=== PATIENT | male | born 1945 | race Caucasian/White ===

== ENCOUNTER 2016-12-25 11:22 | Inpatient (IN) | payer MEDICARE, OTHER ==
[~2016-12-25] VITALS: Ht 180.3 cm; Wt 99.7 kg
--- NOTE | ~2016-12-25 | OR ---
PATIENT'S NAME: MAX CALLEJAS [facility] AGE: 71 Y [address] ROOM: [place] [address] LOCATION: [facility] ADMIT DATE: 12/25/2016 OR/Procedure Report DISCHARGE DATE: 12/27/2016 FAMILY PHYSICIAN: PHYSICIAN, NO ATTENDING PHYSICIAN: Tamiko Yeager SURGEON: Emiliano Loja DO SUPERVISOR TRAVEL INFORMATION CENTER: DATE OF PROCEDURE: 12/26/2016 PREOPERATIVE DIAGNOSES: 1. Third-degree atrioventricular block with syncope. 2. Transient ischemic attack. POSTOPERATIVE DIAGNOSES: 1. Third-degree atrioventricular block with syncope. 2. Transient ischemic attack. PROCEDURE: Insertion of dual-chamber permanent pacemaker via the left subclavian vein. BRIEF HISTORY: Mr. Callejas is a 71-year-old white male with the above-noted diagnosis. He has been brought to the operative suite today after informed consent was obtained for placement of his device. DESCRIPTION OF PROCEDURE: Anterior chest wall was sterilely prepped and draped in usual fashion. The left infraclavicular space was then infiltrated with 1% lidocaine and the patient was placed into a Trendelenburg position. The subclavian vein was accessed x2 and guidewires were placed under fluoroscopic guidance into the right atrium. An incision was created and pocket was formed. Electrocautery used for hemostasis. Guidewires were brought through the incision via sheath and dilator assembly and we placed our leads. We began with our right ventricular lead, it is a [employer] Ingevity lead, model 7742, serial number [id number]. The lead was placed in the right ventricular base, sensing R-waves of 4.6 with a measured threshold of 0.4 V at 0.4 msec, its impedance was 812 ohms. In a similar fashion, we placed our atrial lead, which is a [employer] Ingevity lead, model 7741, serial number is [id number]. This lead was placed into the right atrial appendage. Sensing P-waves of 2.3 mV with a voltage threshold was 0.8 V at 0.4 msec and a pacing impedance of 627 ohms. Each lead was now connected to the [employer] MRI generator, model number is L111, serial number is [id number]. Leads and generators were placed into the pocket. Appropriate sensing and pacing was noted. Incision was closed in a layered fashion with 2-0 and 4-0 Vicryl. Pressure dressing was applied. As noted above, this is an MRI Safe System. The patient was paced DDDR, lower rate limit of 60 and maximal tracking rate of 130. The patient tolerated the PATIENT'S NAME: MAX CALLEJAS [facility] AGE: 71 Y [address] ROOM: [place] [address] LOCATION: [facility] ADMIT DATE: 12/25/2016 OR/Procedure Report DISCHARGE DATE: 12/27/2016 FAMILY PHYSICIAN: ALESHA CONDE ATTENDING PHYSICIAN: Tamiko Yeager procedure well and was transferred to recovery area in stable condition. DO KAYY BAUER/balbir /[id number] d: 12/29/16 1859 t: 01/01/17 0729, OPERATIVE SUMMARY
--- NOTE | ~2016-12-25 | HP ---
PATIENT'S NAME: MAX CALLEJAS [facility] AGE: 71 Y [address] ROOM: [place] [address] LOCATION: [facility] ADMIT DATE: 12/25/2016 History & Physical DISCHARGE DATE: FAMILY PHYSICIAN: PHYSICIAN, NO ATTENDING PHYSICIAN: Shobha PAUL DATE OF SERVICE: CHIEF COMPLAINT: Left-sided weakness. HISTORY OF PRESENT ILLNESS: The patient is a 71-year-old gentleman with history of Crohn's disease, hyperlipidemia, and diabetes mellitus type 2, who presents here to our emergency department with acute left-sided weakness. The patient reports that around 11 o'clock a.m., he experienced left hand numbness with subsequent lightheadedness. The patient sat down in a chair for a while and could not pickup his cell phone with his left upper extremity. He had to use his right hand in order to pickling solution maker his phone from his left pocket. The patient reports that he tried to walk around and also felt his left lower extremity to be weak and dragging. The patient was brought here emergently for suspicious for stroke. The patient denies chest pain, shortness of breath, abdominal pain, nausea, vomiting, vision change, and syncope. In the emergency department, CT head was done, which showed no acute changes. Teleneurology was consulted. By the time the patient was in the emergency department, the patient's symptoms improved, and went back to normal. The patient received full dose of aspirin during visit. The patient reports that he has a history of low heart rate and denies history of hypertension. PAST MEDICAL HISTORY: 1. History of Crohn's disease. 2. Diabetes mellitus type 2. 3. Hyperlipidemia. PAST SURGICAL HISTORY: Colectomy secondary to Crohn's disease and hernia repair with mesh. FAMILY HISTORY: Suspicious for inflammatory bowel disease. He reports that his father of old age. SOCIAL HISTORY: He is a retired insurance office manager. He denies smoking and drinking. PATIENT'S NAME: MAX CALLEJAS [facility] AGE: 71 Y [address] ROOM: [place] [address] LOCATION: [facility] ADMIT DATE: 12/25/2016 History & Physical DISCHARGE DATE: FAMILY PHYSICIAN: PHYSICIAN, NO ATTENDING PHYSICIAN: Shobha PAUL MEDICATIONS: Currently being reconciled. REVIEW OF SYSTEMS: All systems have been reviewed and are negative except for what I mentioned in the HPI. PHYSICAL EXAMINATION: VITAL SIGNS: Afebrile, blood pressure 176/86, heart rate of 56, respiratory rate of 14, and saturating 95% on room air. GENERAL APPEARANCE: The patient is alert and awake, sitting on the bed, surrounded by his family. HEAD: Normocephalic, atraumatic. EYES: Extraocular muscles intact. No discharge. NOSE: No nasal discharge. EARS: No ear discharge. ORAL CAVITY: Moist oral cavity. CHEST: Clear to auscultation bilaterally. HEART: Bradycardic. No murmurs, rubs, or gallops heard. ABDOMEN: Soft, nontender, and nondistended. Bowel sounds are present. SKIN: Warm to touch. EXTREMITIES: No edema. MUSCULOSKELETAL: Range of motion intact. No obvious effusion noted. RETURNER: Alert and oriented x3. Motor and strength grossly intact. The patient was able to walk. No ataxia was noted. LABORATORY DATA: Troponin x1 negative. White blood cell count of 7.1, hemoglobin 14, platelets of 245. Creatinine of 1, BUN of 17, blood glucose 124, sodium of 140, and potassium 4.6. EKG shows first-degree AV block with heart rate in the 50s with OR length of close to 600 milliseconds. ASSESSMENT AND PLAN: 1. Transient ischemic attack. The patient is presenting with left-sided symptoms that improved on admission status post full dose aspirin. ABCD2 score is 6 points. Two day stroke risk is 8.1%. Thus we will admit the patient as an inpatient for serial neurological exam and stroke workup. Stroke workup will include echocardiogram, CTA of head and neck, and MRI of brain without contrast. We will keep the patient on telemonitor to analyze for arrhythmia. Continue 81 mg of aspirin. The patient is on simvastatin. The patient has intolerance to Lipitor. Therefore we will start the patient on Crestor 40 mg daily. We will allow permissive PATIENT'S NAME: MAX CALLEJAS [facility] AGE: 71 Y [address] ROOM: [place] [address] LOCATION: [facility] ADMIT DATE: 12/25/2016 History & Physical DISCHARGE DATE: FAMILY PHYSICIAN: PHYSICIAN, NO ATTENDING PHYSICIAN: Shobha PAUL hypertension for 24 hours until the MRI is negative. If MRI is positive, we will continue the permissive hypertension for 24 hours. To treat with hydralazine 10 mg IV if systolic blood pressure is greater than 220 and diastolic blood pressure is greater than 110. PT/OT to see the patient. 2. Diabetes mellitus type 2. We will hold metformin as the patient is going to get a CTA of head and neck. We will start the patient on sliding scale insulin with aspart with low-dose scale. 3. Crohn's disease, stable. Continue home medications. 4. Hyperlipidemia. We will change simvastatin to Crestor. Assessment and plan was discussed with the patient. Greater than 40 minutes was spent on patient care. All question was answered to patient's satisfaction. We will admit the patient. Code status on admission, full code. BEVERLY REARDON MD AD/modl /[id number] D: [id number] T: [id number] HISTORY & PHYSICAL
--- NOTE | ~2016-12-25 | CON ---
PATIENT'S NAME: MAX CALLEJAS [facility] AGE: 71 Y [address] ROOM: [place] [address] LOCATION: [facility] ADMIT DATE: 12/25/2016 Consultation DISCHARGE DATE: FAMILY PHYSICIAN: PHYSICIAN, NO ATTENDING PHYSICIAN: Shobha MORRISON A consult for Dr. Morrison, hospitalist. HISTORY OF PRESENT ILLNESS: This pleasant, 71-year-old gentleman is referred for rehab evaluation, admitted on 12/25 with sudden onset of left-sided weakness. He could not move his upper extremity, and later on, he noticed that he could not properly move his left lower extremity. No similar condition in the past. Denied any headache. No dizziness. No visual cut/neglect. Denied any chest pain. No shortness of breath. Denied any tachycardia. No abdominal pain. Denied any visual changes. No headaches. No syncope. No similar condition in the past. No trauma. PAST MEDICAL HISTORY: 1. Known to have history of diabetes type 2 and on treatment. 2. Dyslipidemia. 3. Crohn's disease. 4. He denied history of hypertension. PHYSICAL EXAMINATION: GENERAL: At the present time, he is alert, oriented, feels that he has done much better. VITAL SIGNS: Blood pressure 185/89, temperature 97.6, pulse 67, and respiration rate 18. He is 5 feet 11 inches and weighs 99.5 kg. NEUROLOGIC: He is able now to comprehend and express without difficulty. No visual cut and/or neglect. No facial droop. Cranial nerves 2 through 12 are within normal limits. Voice is clear and not wet. Tongue and soft palate are moving symmetrical. His muscle strength throughout is 4 to 4+. Deep tendon reflexes are present and equal throughout, 1+. Good bladder and bowel control. MEDICATIONS: He is on the following medications: 1. Aspirin. 2. Adrenaline. 3. Atropine sulfate. PATIENT'S NAME: MAX CALLEJAS [facility] AGE: 71 Y [address] ROOM: [place] [address] LOCATION: [facility] ADMIT DATE: 12/25/2016 Consultation DISCHARGE DATE: FAMILY PHYSICIAN: PHYSICIAN, NO ATTENDING PHYSICIAN: Shobha MORRISON 4. Metamucil. 5. NaCl 0.9%. 6. MiraLAX. 7. Multivitamin. 8. Insulin aspartate, mild scale. 9. Crestor. 10. Glucagon. 11. Glucose. 12. Dextrose. 13. Apresoline. 14. Tylenol. 15. Protonix. ASSESSMENT AND PLAN: This gentleman has made very well so far, and he has done good and progressed nicely. I feel that he needs to continue to work with his family physician and not to drive until he is re-evaluated. I will be following alongside with you while he is here. Thank you for this referral. I explained everything for him and his . They verbalized understanding and agreement. MD JORDI CHAN/modl /[id number] d: 12/26/16 1203 t: 12/27/16 0826, CONSULTATION REPORT
--- NOTE | ~2016-12-25 | HP ---
PATIENT'S NAME: MAX CALLEJAS [facility] AGE: 71 Y [address] ROOM: [place] [address] LOCATION: [facility] ADMIT DATE: 12/25/2016 History & Physical DISCHARGE DATE: FAMILY PHYSICIAN: PHYSICIAN, NO ATTENDING PHYSICIAN: Shobha PAUL DATE OF SERVICE: ADDENDUM: Bradycardia. The patient reports he has a history of bradycardia, and his blood pressure has been stable, and he has not had episode of any syncope in the past. EKG shows sinus roberta with first-degree AV block with WA interval close to 600 msec. We will keep the patient on telemonitor and follow the patient closely. Blood pressure is stable. The patient might benefit from pacemaker in the near future. To consult Cardiology if patient is symptomatic. MD MASTER HERNANDEZ/balbir /[id number] D: [id number] T: [id number] HISTORY & PHYSICAL
--- NOTE | ~2016-12-25 | CON ---
PATIENT'S NAME: MAX CALLEJAS [facility] AGE: 71 Y [address] ROOM: [place] [address] LOCATION: [facility] ADMIT DATE: 12/25/2016 Consultation DISCHARGE DATE: FAMILY PHYSICIAN: PHYSICIAN, NO ATTENDING PHYSICIAN: Shobha PAUL DATE OF CONSULTATION: 12/25/2016 TIME: 1135 hours. CHIEF COMPLAINT: Left-sided weakness. HISTORY OF PRESENT ILLNESS: We were called to the emergency room on a stroke alert for this 71-year-old male who presented with left-sided weakness. His and son are at bedside and help with the history. The incident started 30 minutes prior to arrival. He had some numbness and tingling in his left arm and weakness, and by the time he went to stand, he had difficulty standing. His son stated he had to pretty much carry him to the car. He also had some difficulties in talking. When we saw him in the ED, we examined him in cart 6. He had just completed his CAT scan. PAST MEDICAL HISTORY: Includes xys-[id number]-[id number] diabetes mellitus, Crohn disease, dyslipidemia, and bradycardia. PAST SURGICAL HISTORY: Includes a colectomy. During the colectomy, he was in the hospital for 19 days and developed DVT and also has a vena cava filter in. SOCIAL HISTORY: The patient denies any tobacco, alcohol, or illicit drug use. ALLERGIES: OXYCODONE. MEDICATIONS: Reviewed by me. They do not include any blood thinners. PRIMARY CARE DOCTOR: Dr. Aponte. REVIEW OF SYSTEMS: PATIENT'S NAME: MAX CALLEJAS [facility] AGE: 71 Y [address] ROOM: [place] [address] LOCATION: [facility] ADMIT DATE: 12/25/2016 Consultation DISCHARGE DATE: FAMILY PHYSICIAN: PHYSICIAN, NO ATTENDING PHYSICIAN: Shobha PAUL All systems were reviewed and are negative with the exception of those discussed in the HPI and Past Medical History. PHYSICAL EXAMINATION: VITAL SIGNS: Weight 101.5 kg. Blood pressure is 157/68, pulse is 68, respirations 18, and temperature 96.6. He is saturating 96% on room air. GENERAL: The patient is a 71-year-old well-groomed male who appears his stated age. He participates in the exam. HEENT: Normocephalic and atraumatic. Pupils are equal, round, and reactive to light. Extraocular motions are intact. NECK: Supple without nuchal rigidity. CARDIOVASCULAR: Regular rate and rhythm. LUNGS: Clear to auscultation bilaterally. No wheezes, rales, or rhonchi. ABDOMEN: Soft, nontender, and nondistended. SKIN: Warm and dry with no rashes or lesions noted. NEUROLOGICAL: Alert and oriented x4. NIH is 2 with slight pronator drift in the left arm and left leg. Gait was not examined. The patient is able to stand with good balance. Pupils equal and reactive to light and accommodation. Extraocular movements intact. LABORATORY AND DIAGNOSTIC DATA: CT is reported as negative for acute bleed or stroke. EKG was obtained and shows sinus bradycardia with a rate of 36. CBC is normal. CMP is normal. Coagulation panels are normal. IMPRESSION: Cerebrovascular accident. The patient still demonstrates some mild symptoms of possibly a right-sided cerebrovascular accident. He is also markedly bradycardic. We will admit him to the hospital for further followup from this incident. We will obtain MRI, echo, and lipid panel for stroke workup. We will involve PT, OT, and Speech, and Dr. Alvares to consult for rehabilitation. The patient is not a tPA candidate due to his low stroke scale. If the patient's condition would change, we would certainly want notified for reevaluation. The plan of care was discussed with Dr. Petty. Dr. Strong and Dr. Petty were involved in the plan of care. The situation was discussed with the patient, his , and their son. They asked appropriate questions. The plan will be to admit to NTU, which is a monitored floor. Therefore, we can monitor his bradycardia. The patient did require 35 minutes of critical care time including discussion with the patient and family about possible risks and benefits of thrombolytic therapy and risks and benefits of treatment. The patient did seem surprised that he was being admitted, as well his did. It was discussed why we had to look further into these episodes. Physican Attestation: Patient was seen and evaluated via telemedicine with aditya assistance of JUAN Arias. We discussed the impression and plan together and with patient/family as indicated above. PATIENT'S NAME: MAX CALLEJAS [facility] AGE: 71 Y [address] ROOM: [place] [address] LOCATION: [facility] ADMIT DATE: 12/25/2016 Consultation DISCHARGE DATE: FAMILY PHYSICIAN: PHYSICIAN, ALEHSA ATTENDING PHYSICIAN: Shobha PAUL ANA ARIAS MD PP/modl /[id number] d: 12/26/16 1427 t: 02/07/17 1315, CONSULTATION REPORT
--- NOTE | ~2016-12-25 | ECHO ---
Transthoracic Echocardiography Report (TTE) Demographics Patient Name MAX CALLEJAS Date of Study 12/26/2016 Patient Number [id number] Visit Number [id number] Date of 1945 Room Number G6324 Accession Number [id number] Gender Male Age 71 year(s) Referring Tamiko Yeager Project Geophysicist Billy Jackson RDCS, Physician RVT Physician Interpreting Shay Dumont Die Casting Machine Maintainer Physician MD Supervising Ordering Physician aTmiko Yeager MD/MLP Nurse Stress Measuring Machine Operator Conclusions Contractility Score Summary Normal Left Ventricular contractility was noted. Summary Normal LV/RV size and systolic function. The estimated left ventricular ejection fraction is 60%. The left atrium is moderately dilated. Informed consent was obtained, bubble study was done, there is no evidence for a PFO or ASD. The right atrium is moderately dilated. Mild tricuspid regurgitation by color Doppler. Procedure Type of Study TTE procedure:2D Echocardiogram, Echo with Contrast. Procedure Date Date: 12/26/2016 Start: 09:58 AM Study Location: Inpatient Portable Technical Quality: Adequate visualization Indications:TIA. Appropriate Use Criteria: 9 Patient Status: Routine Contrast Medium: Bubble Study. Rhythm: Atrial fibrillation HR: 65 bpm BP: 153/87 mmHg M-Mode/2D Measurements LV Diastolic Dimension: 4.32 cm LV Systolic Dimension: 2.49 cm LV Septum Diastolic: 0.89 cm LV PW Diastolic: 0.93 cm AO Root Dimension: 3.5 cm Cardiac Output: 3.08 l/min AV Cusp Separation: 1.9 cm RV Diastolic Dimension: 2.83 cm LA volume: 92 ml LVOT: 1.9 cm RV Base: 4.08 cm LVOT VTI: 16.7 cm RV Mid: 3.22 cm LV Stroke volume: 47.33 ml TAPSE: 2.52 cm TDI-S': 10.3 cm/s Doppler Measurements AV Peak Velocity: 1.2 m/s MV Peak E-Wave: 1.58 m/s AV Peak Gradient: 5.76 mmHg AV Mean Gradient: 3 mmHg MV P1/2t: 45 msec LVOT Peak Velocity: 0.73 m/s TR Velocity:2.89 m/s PV Peak Velocity: 0.82 m/s TR Gradient:33.41 mmHg PV Peak Gradient: 2.69 mmHg Estimated RAP:5 mmHg Estimated PASP: 38.41 mmHg Estimated RVSP: 38 mmHg E' Septal Velocity: 0.14 m/s E' Lateral Velocity: 0.18 m/s Findings Left Ventricle The left ventricle is normal in size . Diastolic function indeterminate due to patient's arrhythmia. Right Ventricle Normal right ventricle structure and function. Left Atrium The left atrium is moderately dilated. Informed consent was obtained, bubble study was done, there is no evidence for a PFO or ASD. Right Atrium The right atrium is moderately dilated. IVC measures 1.66 cm with inspiratory collapse. Mitral Valve Mild mitral regurgitation by color Doppler. Aortic Valve There is mild aortic regurgitation by color Doppler. The aortic valve is mildly sclerotic. Tricuspid Valve Mild tricuspid regurgitation by color Doppler. The pulmonary pressure (RVSP) is 38.41 mmHg. Pulmonic Valve Normal pulmonic valve structure and function. Pericardial Effusion No evidence of pericardial effusion. Miscellaneous The aortic root maximum diameter measures 3.5 cm. Pleural Effusion No evidence of pleural effusion. Contractility Score LV regional wall motion:(0-Non visualized 1-Normal 2-Hypokinesis 3-Akinesis 4-Dyskinesis 5-Aneurysm) Signature dtt: KRISTYN MONTERO dtd: 12/26/16 0958 Physician Self Edit
--- NOTE | ~2016-12-25 | DS ---
PATIENT'S NAME: MAX CALLEJAS [facility] AGE: 71 Y [address] [place] [facility] [place] [address] LOCATION: GPCU ADMIT DATE: 12/25/2016 Discharge Summary DISCHARGE DATE: 12/27/2016 FAMILY PHYSICIAN: PHYSICIAN, NO ATTENDING PHYSICIAN: Shobha MORRISON CONSULTING PHYSICIANS: 1. Dr. Basilio. 2. Dr. Loja. 3. Tele-neurology. DISCHARGE DIAGNOSES: 1. Acute to subacute multifocal infarcts. 2. Third-degree AV block, status post pacemaker. 3. Diabetes mellitus type 2. 4. Dyslipidemia. 5. Crohn disease. PROCEDURES PERFORMED: Placement of a pacemaker, [employer], on 12/26/[address] Loja. HOSPITAL COURSE: Please refer to admitting history and physical as dictated by Dr. Morrison. Briefly, the patient was admitted to [facility] [place] with left-sided weakness. He was seen and evaluated by tele-neurologist, Dr. Petty. He was not a candidate for tPA because of his rapid and near-complete improvement of his left-sided weakness. He was noted to have bradycardia. It was recommended that he be admitted to the hospital. He was monitored on telemetry throughout his stay. He was started on a baby aspirin. Accu-Cheks were monitored a.c. and h.s. with sliding scale as needed. At 0200 hours on 12/26/2016, the patient had an episode of bradycardia, heart rates 30s to 40s, blood pressure of 160/90. EKG did show a third-degree AV block. Cardiology was consulted. It was recommended that the patient proceed with a dual- chamber pacemaker to be placed by Dr. Loja. This procedure took place on 12/26/2016. The patient tolerated the procedure well. His left-sided weakness had essentially resolved. PT and OT did see the patient as well as Dr. Alvares for rehab evaluation. He was not a candidate for rehab. He was started on Lopressor 25 mg twice a day. Cardiology was also asked to perform a SABAS as the patient did have multifocal subacute and acute infarcts. SABAS was performed on 12/27. It did not show any evidence of left atrial appendage thrombus. It did show mild atherosclerotic plaque. He was feeling well after his SABAS. His vital signs were stable. Heart rate 60s to 90s. The patient's vital signs were stable. He was ambulatory. It was felt as though he was stable to be discharged to home. Follow up with his primary care provider in 3-5 days. PATIENT'S NAME: MAX CALLEJAS [facility] AGE: 71 Y [address] ROOM: [place] [address] LOCATION: GPCU ADMIT DATE: 12/25/2016 Discharge Summary DISCHARGE DATE: 12/27/2016 FAMILY PHYSICIAN: ALESHA CONDE ATTENDING PHYSICIAN: Shobha MORRISON LABORATORY DATA: Sodium 141, potassium 4.5, chloride 107, BUN 15, creatinine 1.0. GFR remained greater than 60. Total cholesterol 166, triglycerides 125, HDL 57, LDL 84. Hemoglobin A1c 6.7. TSH 1.940. WBC 6.3, hemoglobin 13.9, hematocrit 42.0, platelets 189. INR 0.94. RADIOLOGY REPORT: CTA of the head and neck was essentially normal. Mild atherosclerotic changes. MRI of the brain showed multiple small foci of acute and subacute ischemic infarct in the right MCA territory involving the frontal parietal cortex and posterior frontal centrum semiovale. Chest x-ray was normal. Post-pacemaker insertion chest x-ray showed left-sided pacemaker in good position. Heart, lungs, and mediastinum were stable. DISCHARGE MEDICATIONS: 1. Aspirin 81 mg p.o. daily. 2. Lopressor 25 mg p.o. twice a day. 3. Multivitamin 1 tablet p.o. daily. 4. MiraLAX 17 g p.o. daily. 5. Metamucil 6 tabs p.o. twice daily. 6. Crestor 40 mg p.o. daily. 7. Mesalamine 2.4 g p.o. daily. 8. Metformin 500 mg p.o. twice daily. DISCHARGE INSTRUCTIONS: The patient will be discharged to home. Diet: Cardiac. Activity: Post-pacemaker restrictions. Followup appointment: With Dr. Sammi Aponte in 3-5 days. No pulling, pushing, or lifting greater than 10 pounds with left upper extremity for two weeks. May shower on 12/28/2016. November DC sling on 12/28/2016. Thank you for allowing us to participate in the care of this patient as he has been hospitalized at [facility]. PATIENT'S NAME: MAX CALLEAJS [facility] AGE: 71 Y [address] ROOM: [place] [address] LOCATION: GPCU ADMIT DATE: 12/25/2016 Discharge Summary DISCHARGE DATE: 12/27/2016 FAMILY PHYSICIAN: PHYSICIAN, ALESHA ATTENDING PHYSICIAN: Shohba MORRISON APRN FOR RONNIE RUCKER MD KRR/modl /[id number] CC: Sammi Aponte MD d: 12/28/16 0353 t: 01/05/17 1834, DISCHARGE SUMMARY
--- NOTE | ~2016-12-25 | CON ---
PATIENT'S NAME: MAX CALLEJAS [facility] AGE: 71 Y [address] ROOM: [place] [address] LOCATION: [facility] ADMIT DATE: 12/25/2016 Consultation DISCHARGE DATE: FAMILY PHYSICIAN: PHYSICIAN, NO ATTENDING PHYSICIAN: Shobha PAUL DATE OF CONSULTATION: 12/26/2016 CARDIOLOGY CONSULTATION REASON FOR CARDIOLOGY CONSULTATION: Bradycardia. HISTORY OF PRESENT ILLNESS: This is a 71-year-old male, who presents to [facility] with left- sided weakness. He came to the emergency department because he had left hand numbness and lightheadedness, and was unable to use his left arm or his left leg at home. His symptoms did resolve after being in the emergency department for a short time. An MRI of his head showed a small acute or subacute ischemic infarct in the right MCA territory. He has had return of equal strength to upper and lower extremities. This consult requested due to the patient overnight developing a third-degree AV block on his telemetry with heart rates in the 30s. At this time, his heart rate is 60 beats per minute with a sinus rhythm with a first-degree AV block. He denies any chest pain, shortness of breath, palpitations, nausea, vomiting, presyncope, or syncope. He does admit to having a few dizzy episodes a few weeks ago when standing up quickly. Overall, he has been in a normal level of health and his health history includes chronic Crohn's disease, diabetes mellitus type 2, and hyperlipidemia. At the time of this consult, he is resting comfortably in bed in no acute distress. PAST MEDICAL HISTORY: As listed in the HPI. PAST SURGICAL HISTORY: 1. Hernia repair. 2. Partial colectomy due to Crohn disease. FAMILY HISTORY: Noted history of inflammatory bowel disease. SOCIAL HISTORY: No history of tobacco or alcohol abuse. Also no history of illicit drug use. CURRENT MEDICATIONS: PATIENT'S NAME: MAX CALLEJAS [facility] AGE: 71 Y [address] ROOM: [place] [address] LOCATION: [facility] ADMIT DATE: 12/25/2016 Consultation DISCHARGE DATE: FAMILY PHYSICIAN: PHYSICIAN, NO ATTENDING PHYSICIAN: Shobha PAUL 1. Aspirin 81 mg p.o. daily. 2. Crestor 40 mg p.o. daily. 3. Metamucil 6 capsules p.o. twice daily. 4. MiraLAX 17 g p.o. daily. 5. Lialda 1.2 g p.o. daily. 6. Protonix 40 mg p.o. daily. 7. Multivitamin 1 tablet p.o. daily. 8. NovoLog subcutaneous on a mild sliding scale per a.c. and at bedtime Accu- Cheks. MEDICATION ALLERGIES: Codeine causing confusion. REVIEW OF SYSTEMS: Pertinent positive review of systems as stated in the HPI. All other review of systems evaluated and negative. PHYSICAL EXAMINATION: VITAL SIGNS: Temperature 97.6, pulse 67, respirations 18, blood pressure 185/89, and O2 saturation 96% on room air. The patient weighs 99.5 kg. SKIN: [place], warm, and dry. EYES: Sclerae clear. No xanthelasmas. ENT: Oral mucosa is pink and moist. No jugular venous distention or carotid bruits. CHEST: Respirations are even and unlabored. LUNGS: Clear to auscultation. HEART: Regular rate and rhythm. Normal S1 and S2. No murmurs, rubs, or gallops. ABDOMEN: Soft, nontender. MUSCULOSKELETAL: Gait is normal. EXTREMITIES: Peripheral pulses palpable. No clubbing, cyanosis, or edema. PSYCHIATRIC: Alert and oriented. Mood and affect are appropriate. IMPRESSION AND PLAN: Per Dr. Julia Day: 1. Third-degree atrioventricular block. 2. Acute/subacute right middle cerebral artery ischemic infarct with small foci. 3. Chronic Crohn disease with no recent exacerbations or need for antibiotics. Again this is a 71-year-old male, admitted with transient ischemic attack and received full-dose aspirin. He is currently undergoing a 2D echocardiogram which shows normal left ventricular ejection fraction and his bubble study is currently pending. He does have complete heart block, as well as a noted tracing of 2:1 atrioventricular block. He is on no offensive medications, and PATIENT'S NAME: MAX CALLEJAS [facility] AGE: 71 Y [address] ROOM: [place] [address] LOCATION: [facility] ADMIT DATE: 12/25/2016 Consultation DISCHARGE DATE: FAMILY PHYSICIAN: PHYSICIAN, NO ATTENDING PHYSICIAN: BEVERLY,Dagmawe will need a dual-chamber permanent pacemaker. We will defer to Neurology regarding the need for a transesophageal echocardiogram as well as anti- platelet therapy. His medications will be optimized after the permanent pacemaker implantation. We will continue to monitor, evaluate, and treat as appropriate. Thank you for this consult. Thank you for allowing [facility] to interact in the care of this patient. RIGOBERTO CHANDLER APRN FOR MD KIM SALTER/balbir /[id number] d: 12/26/16 1541 t: 01/01/17 1629, CONSULTATION REPORT
--- NOTE | ~2016-12-25 | ECHO ---
Transesophageal Echocardiography Report (SABAS) Demographics Patient Name MAX CALLEJAS Date of Study 12/27/2016 Patient Number [id number] Visit Number [id number] Date of 1945 Room Number G6324 Gender Male Number Age 71 year(s) Referring Shay Dumont Piano Stringer Rosalina Toure RVT, Physician MD JALEN Yeager Physician Interpreting Chetna Soriano Machine Shop Worker Physician Supervising Ordering Shay Dumont MD/GILDARDO Physician MD Nurse Stress Director [employer] Conclusions Summary Transesophageal echocardiogram was done under general anesthesia without difficult probe placement . The estimated left ventricular ejection fraction is 60%. The left ventricle is normal in size . There is no LA or LA appendage thrombus or spontaneous contrast. Negative bubble study. Mild mitral regurgitation by color Doppler. The aortic valve is mild to moderately sclerotic. There is mild aortic regurgitation by color Doppler. Mild tricuspid regurgitation by color Doppler. Mild thoracic aorta plaque. Procedure Type of Study SABAS procedure Procedure Date Date: 12/27/2016 Start: 10:19 AM Study Location: Inpatient Portable Technical Quality: Adequate visualization Indications:CVA. Appropriate Use Criteria: 8 Patient Status: Routine Rhythm: Paced HR: 64 bpm BP: 180/85 mmHg SABAS Performed By: the attending and the vp ad products and planning Findings Left Ventricle The left ventricle is normal in size . Left Atrium There is no LA or LA appendage thrombus or spontaneous contrast. Right Atrium Negative bubble study. Mitral Valve Mild mitral regurgitation by color Doppler. Aortic Valve The aortic valve is mild to moderately sclerotic. There is mild aortic regurgitation by color Doppler. Tricuspid Valve Mild tricuspid regurgitation by color Doppler. Miscellaneous Mild thoracic aorta plaque. Signature dtt: REG MILLAN dtd: 12/27/16 1019 Physician Self Edit
--- NOTE | ~2016-12-25 | ER ---
PATIENT'S NAME: MAX CALLEJAS [facility] AGE: 71 Y [address] ROOM: [place] [address] LOCATION: [facility] ADMIT DATE: 12/25/2016 ER/Outpatient Report DISCHARGE DATE: FAMILY PHYSICIAN: PHYSICIAN, NO ATTENDING PHYSICIAN: Shobha MORRISON Time of arrival: 1122 hours. Time of evaluation: 1124 hours. CHIEF COMPLAINT: Left-sided weakness. HISTORY OF PRESENT ILLNESS: The patient is a 71-year-old male who presents to the emergency department today with a chief complaint of left-sided weakness. He is accompanied by his and son. They reported it started 30 minutes prior to arrival. Denies any pain. He reports feeling a sense of numbness over the left side of his arm and pain in left leg. He had weakness then, that did develop in the left arm, left leg, he was having difficulty standing, difficulty in talking. He was unable to move his left arm. By the time he presented here, he had some very slight improvement. Denies any fevers or chills. No nausea or vomiting. No diarrhea or constipation. No chest pain. No shortness of breath. PAST MEDICAL HISTORY: Dhc-vbgwjlz-zotwezsle diabetes mellitus, Crohn's disease, dyslipidemia, and slow heart rate. PAST SURGICAL HISTORY: Colectomy. SOCIAL HISTORY: The patient denies any tobacco, alcohol, or illicit drug use. ALLERGIES: OXYCODONE. MEDICATIONS: Please see list. PRIMARY CARE DOCTOR: Dr. Aponte. REVIEW OF SYSTEMS: All systems are reviewed by myself and are negative with the exception of those discussed in HPI and past medical history. PATIENT'S NAME: MAX CALLEJAS [facility] AGE: 71 Y [address] ROOM: [address] [address] LOCATION: [facility] ADMIT DATE: 12/25/2016 ER/Outpatient Report DISCHARGE DATE: FAMILY PHYSICIAN: PHYSICIAN, NO ATTENDING PHYSICIAN: Shobha MORRISON PHYSICAL EXAMINATION: VITAL SIGNS: Weight 101.5 kg, blood pressure initially 213/88, pulse 74, respiratory rate 18, temperature 96.6, oxygen saturation 95% on room air. GENERAL: The patient is a 71-year-old male, who appears stated age. He is alert and oriented to person, place, time, and president. HEENT: Normocephalic, atraumatic. Pupils are equal, round, and reactive to light. Extraocular motions are intact. Nares are patent bilaterally. TMs are clear. Oropharynx is clear. NECK: Supple. There is no nuchal rigidity. CARDIOVASCULAR: Regular rate and rhythm. LUNGS: Clear to auscultation bilaterally. No wheezes, rales, or rhonchi. ABDOMEN: Soft, nontender, and nondistended. No rebound, rigidity, or guarding. MUSCULOSKELETAL: The patient moves all 4 extremities. SKIN: Warm and dry. No rashes or lesions noted. LABORATORY DATA AND X-RAYS: EKG is obtained, is interpreted by myself, does show a marked sinus bradycardia with a rate of 36, left axis deviation. Significantly prolonged NV interval. QTc is normal. No ST elevation, ST depression, T-wave inversions. CBC is normal. CMP is normal. Coags are normal. CT scan of the brain is obtained. I have discussed results with the radiologist. It shows no acute process. Troponin is less than 0.04. IMPRESSION: 1. Transient ischemic attack versus cerebrovascular accident. 2. Marked sinus bradycardia. 3. Critical care time 32 minutes. 4. Initial visit. EMERGENCY DEPARTMENT COURSE: The patient was brought back to the examination room. Seen and evaluated immediately upon arrival by myself. Stroke alert is initiated at that time. The patient did rapidly undergo a CT imaging of the brain. After return back, the patient is re-examined by myself. The patient's symptoms have significantly improved. He is now able to move his left arm and left leg. His initial NIH stroke scale was a 4, he is now at 0. He has been seen and evaluated by the tele neurologist Dr. Petty. I have discussed the case with Dr. Petty. We do agree that the patient is not a candidate for tPA at this time due to the rapid and near complete improvement of the patient's symptoms. The patient is noted to have episodes of bradycardia. He does have significant NV delay noticed on EKG. On the youth nutritional monitor, the patient does have episodes of pauses as well as episodes of junctional rhythm. The patient denies any chest pain or shortness of breath. I have discussed results of the PATIENT'S NAME: MAX CALLEJAS [facility] AGE: 71 Y [address] ROOM: [address] [address] LOCATION: [facility] ADMIT DATE: 12/25/2016 ER/Outpatient Report DISCHARGE DATE: FAMILY PHYSICIAN: , ALESHA ATTENDING PHYSICIAN: Shobha MORRISON laboratory analysis, EKG, CT scan with the patient and his family. I have contacted Paola who is housekeeper/laundry assistant at 12:29 p.m. I have contacted Dr. Morrison with the Hospitalist Service. He has seen and evaluated the patient down here in the emergency department. He does agree to accept the patient for further evaluation, treatment, and management. The patient did require 32 minutes of critical care time. This did include talking with family, talking with consultants, ordering tests, reviewing tests, as well as close monitoring the patient with significant neurological changes that is rapidly revolving. This did require significant focus and attention with multiple reevaluations of the patient's neurological status. The patient was given 324 mg of aspirin. The patient's questions are answered. Family's questions are answered. They are without further questions. DISPOSITION: The patient is admitted under the care of the Hospitalist Service in stable condition. DO QUOC ROMO/balbir /[id number] d: 12/25/16 1650 t: 12/27/16 0838, OUTPATIENT REPORT
[2016-12-25 12:06] LABS: INR - (THERAPEUTIC) 0.94 (0.92-1.07); PROTIME 9.9 SECONDS (9.8-11.4); PTT 28 SECONDS (25-32)
[2016-12-25 12:13] LABS: ALBUMIN 3.5 gm/dL (3.5-5.0); ANION GAP 13.6 (10.0-19.0); BLOOD UREA NITROGEN 17 mg/dL (6-24); CALCIUM 8.9 mg/dL (8.5-10.5); CHLORIDE 107 mMol/L (96-110); CO2 24 mMol/L (22-32); ESTIMATED GFR (MDRD EQUATION) > 60; PHOSPHORUS 2.7 mg/dL (2.5-4.9); POTASSIUM 4.6 mMol/L (3.7-5.1); SODIUM 140 mMol/L (135-145)
[2016-12-25 12:15] LABS: BASOPHIL % 0.4 %; EOSINOPHIL # 0.2 K/uL (0.0-0.5); EOSINOPHIL % 2.8 %; HEMATOCRIT 44.2 % (37.0-53.0); HEMOGLOBIN 14.8 g/dL (11.0-16.0); IMMATURE GRANULOCYTE % 0.4 %; LYMPHOCYTE # 2.3 K/uL (0.8-4.0); LYMPHOCYTE % 32.2 %; MCH 29.5 pg (27.0-34.0); MCHC 33.5 gm/dL (32.0-36.5); MONOCYTE # 0.6 K/uL (0.0-1.0); MONOCYTE % 7.8 %; NEUTROPHIL % 56.4 %; NRBC % 0 /100WBC (0-0.00); PLATELET COUNT 245 K/uL (150-450); RBC 5.02 M/uL (3.50-5.50); WBC 7.1 K/uL (4.0-11.0)
--- NOTE | 2016-12-25 14:00 | NUR ---
Significant Event: This am felt faint/light headedness and noted left upper extremity weakness. Concern noted and he stated "think I should go to the hospital". Transported to [facility] per private vehicle driven by . Came to emergency room and evaluated for stroke. admitted to NTU at 1355 for TIA. Tele neurology saw in emergency room. Dr. Morrison admitted. Does have chronic bradycardia with heart rate as low as 36 in emergency room. Bradycardia is unsyptomatic. Patient lives in [place] with his . Is visiting grand daughter here in [place] today.
[2016-12-25] MEDS ORDERED: ZOCOR20 MG PO (16:26)
[2016-12-25] MEDS ORDERED: LIALDA1.2 GM PO (16:27)
[2016-12-25] MEDS ORDERED: MIRALAX17 GM PO (16:30)
[2016-12-25] MEDS ORDERED: GLUCOPHAGE500 MG PO (16:30)
[2016-12-25] MEDS ORDERED: METAMUCIL CAPSU1 CAP PO (16:32)
[2016-12-25] MEDS ORDERED: THERA-VITE W/ B1 TAB PO (16:32)
--- NOTE | 2016-12-25 19:28 | NUR ---
Significant Event: 71 Y/O MALE. FULL CODE ADMITTED BY HOSPITALIST FOR TIA. A/O X 3. NIHSS=0. UP AD ENMANUEL. IV TO RIGHT WRIST SALINE LOCKED. PASSED SWALLOWING EVALUTION. ADA DIET. ACCUCHECKS AC/HS. CTA OF HEAD AND NECK AND MRI OF HEAD DONE THIS AFTN. ORDERS FOR HEART ECHO TO BE COMPLETED TOMORROW. HEART RATE BRADYCARDIC WITH 34 NOTED LOWEST THIS AFTN. TELE WITH SINUS RHODA.
--- NOTE | 2016-12-26 03:51 | NUR ---
Significant Event: AAOx3, denies N/T. PERRLA 3mm brisk. NIHSS 0. Equal strong strength throughout. Systolic 160-180's. HR 20-60's, irregular, patient does develop 3rd degree heart block while resting/sleeping, no notation of sleep apnea. No cardiovascular adverse effects noted while HR has been in the 30's, no complaints of nausea, lightheadedness, nausea or chest, back, jaw pain. L.S. clear throughout. B.S. active, last BM 12/25. Urinates per urinal/up 1PA with gaitbelt to bedside commode. NPO since [address] Basilio. Follow up: Rapid Response called at 0300 for HR sustaining 35-37 for 36 seconds, patient was asymptomatic, SBP 180's, SpO2 saturation 93% on RA. New Order states to call MD or Rapid if HR <30 for greater than 15 seconds and if patient becomes hypotensive. NPO per Dr. Basilio, [facility] Cardio to see and evaluate patient in AM. Pacer pads placed on patient with Atropine at bedside.
[2016-12-26 05:17] LABS: CPK 105 IU/L (35-332)
--- NOTE | 2016-12-26 07:53 | NUR ---
CONSULT RECEIVED PER ROUTINE STROKE ORDERS. IF APPROPRIATE, DIET EDUCATION WILL BE COMPLETED PRIOR TO DISCHARGE.
[2016-12-26 11:39] LABS: MAGNESIUM 2.3 mg/dL (1.8-2.6)
--- NOTE | 2016-12-26 17:42 | NUR ---
Significant Event: A/OX3, VSS ON RA. NO COMPLAINTS OF PAIN. LEFT PACER SITE IS COVERED WITH DRESSING NOW C/D/I, ARM TO SLING X48HRS. UP TO BATHROOM WITH 1 ASSIST. IV TO R)HAND HAS NS @TKO WITH NTG DRIP @ 25mcg/MIN. TO KEEP SBP BETWEEN 140-150. ICE PRN TO L)SHOULDER. NPO AFTER MIDNIGHT FOR SABAS IN AM AROUND 0930, WILL COME TO GET AT 0830. DR. ESTRADA LION NEEDS TO EXPAIN R/B TO PT. AND FAMILY, PERMITS TO CHART. Follow up: CONTINUE WITH POC.
--- NOTE | 2016-12-26 18:12 | NUR ---
Attempted to see patient twice today, but both times he was down to surgery for the pacer. Last attempt to see him was at 1715. A CM will continue to follow and assist with discharge planning.
--- NOTE | 2016-12-26 19:05 | NUR ---
Significant Event: left NTU at 1112 per bed to have pacemaker placed. NIHSS=0. Admitted to PCU after surgery.
--- NOTE | 2016-12-26 19:18 | NUR ---
SEE CHART FOR PACU VITAL SIGNS.
[2016-12-27 03:58] LABS: BASOPHIL % 0.5 %; EOSINOPHIL # 0.2 K/uL (0.0-0.5); HEMOGLOBIN 13.9 g/dL (11.0-16.0); IMMATURE GRANULOCYTE % 0.2 %; LYMPHOCYTE # 1.2 K/uL (0.8-4.0); MCH 29.2 pg (27.0-34.0); MCHC 33.1 gm/dL (32.0-36.5); MCV 88.2 fl (83.0-98.0); MONOCYTE # 0.6 K/uL (0.0-1.0); MONOCYTE % 8.9 %; MPV 8.9 fl (9.4-12.4); NEUTROPHIL # (ANC) 4.3 K/uL (1.4-9.0); NEUTROPHIL % 68.4 %; NRBC % 0 /100WBC (0-0.00); PLATELET COUNT 189 K/uL (150-450); RBC 4.76 M/uL (3.50-5.50); RDW-CV 12.8 % (11.9-14.6); WBC 6.3 K/uL (4.0-11.0)
[2016-12-27 04:08] LABS: ANION GAP 12.5 (10.0-19.0); BLOOD UREA NITROGEN 15 mg/dL (6-24); CALCIUM 8.5 mg/dL (8.5-10.5); CHLORIDE 107 mMol/L (96-110); CO2 26 mMol/L (22-32); ESTIMATED GFR (MDRD EQUATION) > 60; POTASSIUM 4.5 mMol/L (3.7-5.1); SODIUM 141 mMol/L (135-145)
--- NOTE | 2016-12-27 04:48 | NUR ---
Significant Event: PATIENT IS A/O X3. VSS. HR 60'S IN PACED RHYTHM. SBP 120-150'S. AFEBRILE. 02 SATS IN MID 90'S ON RA. C/O PAIN TO LEFT SUBCLAVIN INCISION SITE. SITE TENDER BUT TOLERABLE. LUNG CLEAR/DIM. UP WITH SBA TO RESTROOM. HAS SLING TO LEFT ARM. BOWELS HYPERACTIVE. 3 LOOSE STOOLS THIS SHIFT. PATIENT HAS HISTORY OF CROHN'S DISEASE. IV TO RIGHT HAND WITH NS AT TKO. PATIENT HAS BEEN NPO SINCE MIDNIGHT FOR SABAS WITH ANESTHESIA IN AM. ON ACHS ACCUCHECKS. Follow up: CONTINUE TO MONITOR PER PLAN OF CARE.
[2016-12-27] MEDS ORDERED: ASPIRIN (CHILDR81 MG PO (16:28)
[2016-12-27] MEDS ORDERED: LOPRESSOR25 MG PO (16:29)
[2016-12-27] MEDS ORDERED: CRESTOR40 MG PO (16:32)
--- NOTE | 2016-12-27 18:24 | NUR ---
A&O. VSS. IND. SABAS THIS AM WAS NEG. ACHS. RA. AFEBRILE. NO C/O PAIN. HILLARY IN SLING NO ROM. DSG CDI TO HILLARY. CSM WNL. LS CLEAR. BS ACTIVE. VD PER BR. AT BEDSIDE. DC INSTRUCTIONS REVIEWED. IV DC'D. PT TAKEN TO LOBBY VIA WC TO PRIVATE VEHICLE HOME. PT UNHAPPY ABOUT WAIT TIME FOR DC BUT VERY HAPPY WITH PEOPLE HERE AND CARE RECEIVED STATED ALL STAFF VERY KIND AND ACCOMADATING. [facility]IO IS HOME.
--- NOTE | 2016-12-28 08:12 | NUR ---
STROKE NUTRITION THERAPY WRITTEN INFORMATION MAILED OUT TO PT, ALONG WITH RD CONTACT INFORMATION.
== END 2016-12-27 16:55 | disposition disaster alternative care site (69) | DRG 41 ==
LOC: GMED 11:22 → GNTU 12:59 → GPCU 12:59
PROVIDERS: Emergency Medicine; Internal Medicine; Nurse Practitioner; Nurse Practitioner Family; ADMIT Internal Medicine
DX: I63.511 Cerebral infarction due to unspecified occlusion or stenosis of right middle cerebral artery (principal); G81.94 Hemiplegia, unspecified affecting left nondominant side; I44.2 Atrioventricular block, complete; K50.90 Crohn's disease, unspecified, without complications; R00.1 Bradycardia, unspecified; E78.5 Hyperlipidemia, unspecified; Z79.82 Long term (current) use of aspirin
CPT/HCPCS: C1785; C1898; C8929; J0171; J0461; J0690; J7030; J7050; Q9967